=== PATIENT | male | born 1985 | race Caucasian/White ===

== ENCOUNTER 2022-03-03 21:56 | Emergency (ER) | payer OTHER, SELFPAY ==
[2022-03-03 22:15] VITALS: BP 120/84; PULSE 60; RESP 18; TEMP 36.9; BMI 31.0
[2022-03-03] MEDS: cefTRIAXone 1 GM VIAL IM (23:39)
[2022-03-03] MEDS: LIDOCAINE 1% 5 ml (pf) 5 ML VIAL 2.1 ML IM (23:40)
--- NOTE | 2022-03-03 23:48 | ED_ITS ---
HPI - Skin/Abscess/Foreign Bdy General Time Seen by Provider: 23:15 Date Seen: 03/03/22 Chief complaint: Skin/Abscess/Foreign Body Stated complaint: Skin Infection Time Seen by Provider: 03/03/22 23:18 Source: patient, RN notes reviewed and old records reviewed Mode of arrival: ambulatory Limitations: no limitations History of Present Illness HPI narrative: The patient is a very pleasant 36-year-old male previously healthy with no history of MRSA who comes to the emergency room for evaluation regarding a sore wound that is draining on his left leg. 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 He thought it was mosquitos as he has other mosquito bites. 24 hours ago he noticed that this wound was bubbling up and then started draining. Also has some surrounding redness. He denies any pain but it is states that it itches. He has not had fever chills vomiting nausea. He does note that he seems to react a little more to mosquito bites than the average person but denies any previous infections. He has been putting bacitracin on this area as he reacts to Neosporin. Related Data Home Medications Medication Instructions Recorded Confirmed No Known Home Medications 03/03/22 03/03/22 Allergies Allergy/AdvReac Type Severity Reaction Status Date / Time bacitracin Allergy Blister Verified 03/03/22 22:24 [From Neosporin ([id number])] neomycin Allergy Blister Verified 03/03/22 22:24 [From Neosporin ([id number])] polymyxin B Allergy Blister Verified 03/03/22 22:24 [From Neosporin ([id number])] pseudoephedrine Allergy heart race Verified 03/03/22 22:24 [From Sudafed] Review of Systems Narrative: Patient denies fever, chills, vomiting. Exam Const: Vital Signs, click to edit/add: Vital Signs - 24 hr 03/03/22 22:15 Temperature 98.5 F Pulse Rate [Pulse Oximeter] 60 Respiratory Rate 18 Blood Pressure [12 0/84] 120/84 Oxygen Delivery Me thod Room Air Documenting provider has reviewed patient's vital signs: yes Common normals: no apparent distress, average body habitus, oriented x3, no limitations and healthy appearing General appearance: cooperative, comfortable and well kempt HENMT: Common normals: head/scalp atraumatic Head and scalp: atraumatic Eye: Common normals: PERRL General eye: normal appearance of both eyes Pupil: PERRL Neck & C-Spine: Common normals: full ROM and supple Resp: Common normals: normal respiratory effort and clear to auscultation bilaterally Effort & inspection: able to speak in complete sentences Auscultation: clear to auscultation bilaterally Cardio: Common normals: regular rate and regular rhythm Rate: regular rate Rhythm: regular rhythm Neuro: Common normals: oriented x3 Psych: Appearance: well kempt Skin: Narrative: On patient's left medial lower leg just above the malleolus there is a tennis ball-sized area of mild erythema centrally there is a nickel sized area of skin sloughing with oozing from the site. No popliteal lymphadenopathy Course Course Hospital Course: Discuss with patient that I do believe he is experiencing a cellulitis. Would recommend IM injection of Rocephin and then outpatient treatment with oral antibiotics. Wound culture is accomplished. Vital Signs Vital signs: Initial Vital Signs Temperature 98.5 F 03/03/22 22:15 Temperature Source Temporal Artery Scan 03/03/22 22:15 Pulse Rate 60 03/03/22 22:15 Respiratory Rate 18 03/03/22 22:15 Blood Pressure 120/84 03/03/22 22:15 Blood Pressure Mean 96 03/03/22 22:15 Blood Pressure Position Sitting 03/03/22 22:15 Oxygen Delivery Method 03/03/22 22:15 Vital Signs Temperature 98.5 F 03/03/22 22:15 Pulse Rate 60 03/03/22 22:15 Respiratory Rate 18 03/03/22 22:15 Blood Pressure 120/84 03/03/22 22:15 Oxygen Delivery Method 03/03/22 22:15 Temperature 98.5 F 03/03/22 22:15 Pulse Rate 60 03/03/22 22:15 Respiratory Rate 18 03/03/22 22:15 Blood Pressure 120/84 03/03/22 22:15 Oxygen Delivery Method 03/03/22 22:15 MDM - Skin/Abscess/Foreign Bdy MDM Narrative Medical decision making narrative: 1. Cellulitis-patient will receive IM Rocephin 1 g. Will then start him on Keflex 500 mg p.o. t.i.d. x7 days. Bactrim double strength 1 tab p.o. b.i.d. x7 days recommend continued monitoring of this wound. Return to the ER for increasing redness, fever, vomiting, chills. He is informed that he should not note significant improvement in the initial 24-48 hours of treatment. Awaiting wound culture to direct further antibiotic dosing. 2. Disposition-patient is discharged home. Will return as needed. Last tetanus 2012 which means he is up-to-date. Medical Records Attestation: I reviewed the patient's medical records. Discharge Plan Discharge Clinical Impression: Cellulitis Patient Disposition: Home, Self-Care Condition: Unchanged Additional Instructions: Start Keflex and Bactrim this evening. Continue medications as we await the culture to be return. Return to the emergency room if you have worsening symptoms. Prescriptions: No Action No Known Home Medications Follow Up/Referrals: Ami Bradley DO [Primary Care Provider] - Stand Alone Forms: [facility] Info Instructions
== END 2022-03-04 00:14 | disposition home or self-care (01) ==
LOC: ED 23:41
PROVIDERS: Emergency Provider Family Medicine; PCP Family Medicine
DX: L03.116 Cellulitis of left lower limb (principal)
CPT/HCPCS: 87205; 96372; 99283; J0696